=== PATIENT | female | born 1935 | race Caucasian/White ===

== ENCOUNTER → 2016-10-20 | Outpatient (CLI) | payer MEDICARE ==
[~2016-10-20] MED LIST: /ASCO250TA PO; /WARF25TA OR; ACET500C PO; ALEV220T26 PO; ALPHAGAN OU; AMLO10TA2 PO; AMLO10TAB OR; AMLO25TA PO; ASPI325T5 PO; ASPI81TA83 OR; AZOP0.2S OU; AZOPT OU; BISO10TA2 OR; BISO5TAB5 PO; BRIM1OPD OU; CALCTAB22 OR; FERR325T3 PO; METO25TAB PO; MULTCAP11 PO; OMEP40CA2 PO; OMEPPOW18 PO; PERC5TAB6 PO; PERC7.5T8 OR; TRAV04OPD OU; TRAVATAN OU; TYLE325T5 PO; VITA1CAP25 PO; VITA1TAB23 PO; VITAMIN D PO; XARE15TA PO
[2016-10-20 19:21] LABS: ALBUMIN 4.2 GM/DL (3.2-5.2); ALBUMIN/GLOBULIN RATIO 1.08 (1.00-1.93); BILIRUBIN,DIRECT 0.2 MG/DL (0.0-0.2); BILIRUBIN,TOTAL 0.6 MG/DL (0.2-1.0); CALCIUM LEVEL 9.4 MG/DL (8.8-10.2); CREATININE FOR GFR 1.25 MG/DL (0.55-1.02); GLOMERULAR FILTRATION RATE 43.6 (>32); POTASSIUM SERUM 4.2 MEQ/L (3.5-5.1); TOTAL PROTEIN 8.1 GM/DL (6.4-8.2)
[2016-10-20 19:46] LABS: BASO % 0.6 % (0.0-1.0); EOS # 0.1 K/mm3 (0.0-0.50); EOS % 1.9 % (0.0-3.0); LARGE UNSTAINED CELL # 0.2 K/mm3 (0.0-0.4); LARGE UNSTAINED CELL % 2.8 % (0.0-4.0); LYMPH # 2.5 K/mm3 (1.5-4.5); LYMPH % 38.7 % (24.0-44.0); MEAN CORPUSCULAR HEMOGLOBIN 29.3 pg (27.0-33.0); MEAN CORPUSCULAR HGB CONC 31.3 g/dl (32.0-36.5); MEAN CORPUSCULAR VOLUME 93.7 fl (80.0-96.0); MONO # 0.3 K/mm3 (0.0-0.8); MONO % 3.9 % (0.0-5.0); NEUTROPHILS # 3.4 K/mm3 (1.8-7.7); NEUTROPHILS % 52.2 % (36.0-66.0); PLATELET COUNT, AUTOMATED 213 k/mm3 (150-450); RED CELL DISTRIBUTION WIDTH 13.8 % (11.5-14.5); WHITE BLOOD COUNT 6.4 K/mm3 (4.0-10.0)
== END ==
LOC: M WUC 08:09
PROVIDERS: ATTEND Physician Assistant Medical
DX: I48.91 Unspecified atrial fibrillation (principal); I10 Essential (primary) hypertension; R53.83 Other fatigue; I25.10 Atherosclerotic heart disease of native coronary artery without angina pectoris; I49.5 Sick sinus syndrome

== ENCOUNTER 2017-03-09 14:46 | Emergency (ER) | payer MEDICARE ==
[~2017-03-09] VITALS: Ht 149.9 cm; Wt 63.5 kg
[2017-03-09 16:08] VITALS: BP 171/82
== END 2017-03-09 16:24 | disposition home or self-care (01) ==
LOC: M ED 16:18
DX: T83.428A Displacement of other prosthetic devices, implants and grafts of genital tract, initial encounter (principal); N93.9 Abnormal uterine and vaginal bleeding, unspecified; Y76.2 Prosthetic and other implants, materials and accessory obstetric and gynecological devices associated with adverse incidents; I25.10 Atherosclerotic heart disease of native coronary artery without angina pectoris; Z86.718 Personal history of other venous thrombosis and embolism; Z79.899 Other long term (current) drug therapy; Z79.01 Long term (current) use of anticoagulants; Z91.041 Radiographic dye allergy status; Z88.2 Allergy status to sulfonamides

== ENCOUNTER → 2017-06-05 | Outpatient (CLI) | payer MEDICARE ==
[~2017-06-05] MED LIST changes: +METO100T5 PO; +METO25TA4 PO; -METO25TAB PO; +PERC5TAB12 PO; -PERC5TAB6 PO; +ZOFR4TAB3 PO
[2017-06-05 09:52] LABS: BASO % 0.8 % (0.0-1.0); EOS # 0.2 K/mm3 (0.0-0.50); EOS % 3.4 % (0.0-3.0); LARGE UNSTAINED CELL # 0.2 K/mm3 (0.0-0.4); LARGE UNSTAINED CELL % 3.2 % (0.0-4.0); LYMPH # 2.2 K/mm3 (1.5-4.5); LYMPH % 34.6 % (24.0-44.0); MEAN CORPUSCULAR HEMOGLOBIN 29.9 pg (27.0-33.0); MEAN CORPUSCULAR HGB CONC 32.6 g/dl (32.0-36.5); MEAN CORPUSCULAR VOLUME 91.7 fl (80.0-96.0); MONO # 0.3 K/mm3 (0.0-0.8); MONO % 5.8 % (0.0-5.0); NEUTROPHILS # 3.1 K/mm3 (1.8-7.7); NEUTROPHILS % 52.1 % (36.0-66.0); PLATELET COUNT, AUTOMATED 203 k/mm3 (150-450); WHITE BLOOD COUNT 5.9 K/mm3 (4.0-10.0)
[2017-06-05 09:55] LABS: ALBUMIN 3.9 GM/DL (3.2-5.2); BILIRUBIN,TOTAL 0.6 MG/DL (0.2-1.0); CALCIUM LEVEL 8.7 MG/DL (8.8-10.2); CREATININE FOR GFR 1.62 MG/DL (0.55-1.02); GLOMERULAR FILTRATION RATE 32.2 (>32); TOTAL PROTEIN 7.8 GM/DL (6.4-8.2)
[2017-06-05 10:18] LABS: POTASSIUM SERUM 5.2 MEQ/L (3.5-5.1)
== END ==
LOC: M WUC 08:10
PROVIDERS: ATTEND Family Medicine
DX: Z01.818 Encounter for other preprocedural examination (principal); N95.0 Postmenopausal bleeding; N85.00 Endometrial hyperplasia, unspecified

== ENCOUNTER 2017-06-11 06:23 | Day surgery (SDC) | payer MEDICARE ==
[~2017-06-11] VITALS: Ht 149.9 cm; Wt 64.9 kg
[~2017-06-11 06:23] MED LIST changes: -ZOFR4TAB3 PO
[2017-06-11] MEDS ORDERED: LR 1,000 ML IV SCH ×3 (06:30→09:00)
[2017-06-11] MEDS ORDERED: fentaNYL 100 MCG/2 ML INJECTION (J3010) As Ordered ONE (07:49)
[2017-06-11] MEDS ORDERED: dexameTHASONE 4 MG/ML 1ML VIAL (J1100) As Ordered ONE (07:49)
[2017-06-11] MEDS ORDERED: MIDAZOLAM INJ 2 MG/2 ML VIAL (J2250) As Ordered ONE (07:49)
[2017-06-11] MEDS ORDERED: ONDANSETRON 4MG/2ML VIAL (J2405) As Ordered ONE (07:49)
[2017-06-11] MEDS ORDERED: PROPOFOL 200 MG/20 ML VIAL As Ordered ONE (07:49)
[2017-06-11] MEDS ORDERED: LIDOCAINE 2% INJ 100 MG/5 ML SDV (FOR ANES.) As Ordered ONE (07:49)
[2017-06-11] MEDS ORDERED: IBUPROFEN 400 MG TAB PO PRN (08:45)
[2017-06-11] MEDS ORDERED: ONDANSETRON 4MG/2ML VIAL (J2405) IV PRN (08:45)
[2017-06-11] MEDS ORDERED: fentaNYL 100 MCG/2 ML INJECTION (J3010) IV PRN (08:45)
[2017-06-11 10:05] VITALS: BP 159/74
--- NOTE | 2017-06-11 10:53 | RO ---
DATE OF PROCEDURE: 06/11/2017 PREPROCEDURE DIAGNOSIS: Postmenopausal bleeding and abnormal ultrasound. The patient also has a incidental procidentia. POSTPROCEDURE DIAGNOSIS: Postmenopausal bleeding and abnormal ultrasound. The patient also has a incidental procidentia. Small polyps. PROCEDURE: Dilation and curettage, hysteroscopy and MyoSure polypectomy. SURGEON: Dr. Pauly Humphrey. BARKEEPER: ANESTHESIA: LMA DESCRIPTION OF PROCEDURE: Ana Rosa was brought to the operating room where sufficient LMA anesthesia was induced and she was prepped, draped and positioned in the usual sterile fashion. The bladder was emptied. The cervix grasped with single tooth tenacula and the cervix was sounded. She only sounded to 4, which most likely in this 82-year-old patient represents atrophic changes but palpation of the procidentia indicates the cervix may be a little bit elongated so we dilated her at 4 cm dilation and then went ahead and placed the scope and saw what appeared to be endometrial polyps and atrophy. So these were resected. At the fundus, there was a small area that appeared to be just a single tubal ostia or a small beginnings of a perforation from the sounding. We did not see a second ostia. We went ahead and dilated her a little further so we could examine this area and there was no evidence of any significant problem there. There was certainly no evidence that we had not gotten all the way into the uterus. We dilated enough that we could see that this was the beginnings of as small perforation but there was no significant bleeding despite her Eliquis until we backed out the scope to the area where were resected the polyp. We did not see any bleeding in that area of dilation at all. So there was no further lesion. The curettage had already been accomplished before we even went ahead and dilated a little further. So we completed the procedure. Again, there was good hemostasis. Estimated blood loss for the procedure was maybe 5 mL. Fluid replacement was crystalloid. Complications: None. CONDITION AND DISPOSITION: Ana Rosa tolerated the procedure well and was recovering in the recovery room in good condition.
== END 2017-06-11 10:07 | disposition home or self-care (01) ==
LOC: M SDC 06:23
PROVIDERS: ATTEND Obstetrics & Gynecology
DX: N95.0 Postmenopausal bleeding (principal); N84.0 Polyp of corpus uteri; N81.3 Complete uterovaginal prolapse; Z95.0 Presence of cardiac pacemaker; I10 Essential (primary) hypertension; E78.5 Hyperlipidemia, unspecified; K44.9 Diaphragmatic hernia without obstruction or gangrene; K21.9 Gastro-esophageal reflux disease without esophagitis; D64.9 Anemia, unspecified; Z79.899 Other long term (current) drug therapy; Z88.2 Allergy status to sulfonamides; Z91.041 Radiographic dye allergy status
CPT/HCPCS: 58558; 88304; J1100; J2250; J2405; J3010

== ENCOUNTER 2017-06-21 19:38 | Emergency (ER) | payer MEDICARE ==
[~2017-06-21] VITALS: Ht 149.9 cm; Wt 65.0 kg
[2017-06-21] MEDS ORDERED: ACETAMINOPHEN TAB 650MG DOSE (2X325MG) PO ONE (20:15)
[2017-06-21] MEDS ORDERED: NS 500 ML IV ONE (20:15)
[2017-06-21] MEDS ORDERED: ONDANSETRON 4MG/2ML VIAL (J2405) IV ONE (20:15)
[2017-06-21 21:23] LABS: BASO % 0.3 % (0.0-1.0); EOS # 0.1 K/mm3 (0.0-0.50); EOS % 0.6 % (0.0-3.0); LARGE UNSTAINED CELL # 0.1 K/mm3 (0.0-0.4); LARGE UNSTAINED CELL % 0.6 % (0.0-4.0); LYMPH # 0.8 K/mm3 (1.5-4.5); LYMPH % 5.7 % (24.0-44.0); MEAN CORPUSCULAR HEMOGLOBIN 30.1 pg (27.0-33.0); MEAN CORPUSCULAR HGB CONC 33.7 g/dl (32.0-36.5); MEAN CORPUSCULAR VOLUME 89.4 fl (80.0-96.0); MONO # 0.6 K/mm3 (0.0-0.8); MONO % 4.6 % (0.0-5.0); NEUTROPHILS # 11.5 K/mm3 (1.8-7.7); NEUTROPHILS % 88.1 % (36.0-66.0); PLATELET COUNT, AUTOMATED 192 k/mm3 (150-450); RED CELL DISTRIBUTION WIDTH 13.9 % (11.5-14.5)
[2017-06-21 21:28] LABS: INR 1.91
[2017-06-21 21:35] LABS: ALBUMIN 3.6 GM/DL (3.2-5.2); ALBUMIN/GLOBULIN RATIO 0.95 (1.00-1.93); ALKALINE PHOSPHATASE 116 U/L (45-117); ALT/SGPT 21 U/L (12-78); AMYLASE 73 U/L (25-115); ANION GAP 7 MEQ/L (8-16); AST/SGOT 18 U/L (15-37); BILIRUBIN,DIRECT < 0.1 MG/DL (0.0-0.2); BILIRUBIN,TOTAL 0.4 MG/DL (0.2-1.0); BLOOD UREA NITROGEN 26 MG/DL (7-18); CALCIUM LEVEL 8.5 MG/DL (8.8-10.2); CARBON DIOXIDE LEVEL 25 MEQ/L (21-32); CHLORIDE LEVEL 107 MEQ/L (98-107); CREATININE FOR GFR 1.52 MG/DL (0.55-1.02); GLOMERULAR FILTRATION RATE 34.7 (>32); GLUCOSE, FASTING 96 MG/DL (83-110); SODIUM LEVEL 139 MEQ/L (136-145); TOTAL PROTEIN 7.4 GM/DL (6.4-8.2)
[2017-06-21 22:28] VITALS: BP 129/65
--- NOTE | 2017-06-21 23:40 | REPUSA ---
CT of the abdomen and pelvis without contrast Clinical statement: Pain. Technique: Multiple axial CT images were obtained from the base of the lungs to the floor of the pelv is utilizing 5 mm axial slices without administration of contrast. Coronal and sagittal reconstructio ns were also obtained. No comparison is available. Findings: Chest: The visualized lung bases are clear. There is a moderate sized hiatal hernia. Abdomen: The kidneys are normal in size bilaterally. There is no evidence of hydronephrosis or nephro lithiasis. The liver, spleen, pancreas, gallbladder and adrenal glands are unremarkable. The aorta de monstrates moderate atherosclerosis, with normal caliber and contour. There is no abdominal lymphaden opathy or ascites. Pelvis: The bowel is unremarkable, with no obstructive or inflammatory changes. The appendix is zoey l. The urinary bladder is within normal limits. There is no pelvic lymphadenopathy or ascites. The ot her pelvic structures appear unremarkable. Bones: There are no suspicious osseous abnormalities seen. Levoscoliosis of the spine is appreciated, with mild spondylosis. 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 Impression: 1. No obstructive or inflammatory bowel changes. 2. Moderate sized hiatal hernia. 3. No evidence of hydronephrosis or nephrolithiasis. 4. Scoliosis with mild spondylosis.
[2017-06-21] MEDS ORDERED: ZOFR4TAB3 PO (23:49)
== END 2017-06-22 00:03 | disposition home or self-care (01) ==
LOC: M ED 19:38
DX: R10.9 Unspecified abdominal pain (principal); R11.2 Nausea with vomiting, unspecified; R19.7 Diarrhea, unspecified; I48.91 Unspecified atrial fibrillation; I25.10 Atherosclerotic heart disease of native coronary artery without angina pectoris; K21.9 Gastro-esophageal reflux disease without esophagitis; Z79.899 Other long term (current) drug therapy; Z91.041 Radiographic dye allergy status; Z88.2 Allergy status to sulfonamides; Z98.890 Other specified postprocedural states
CPT/HCPCS: 36415; 74176; 80048; 80076; 81001; 82150; 83605; 83690; 85025; 85610; 85730; 87086; 96361; 96374; 99284; J2405

== ENCOUNTER → 2017-06-24 | Outpatient (REF) | payer BC, MEDICARE ==
[~2017-06-24] MED LIST changes: +ZOFR4TAB3 PO
== END ==
LOC: M LAB REF 07:30
PROVIDERS: ATTEND Physician Assistant Surgical
DX: R19.7 Diarrhea, unspecified (principal)

== ENCOUNTER 2018-04-11 06:42 | Emergency (ER) | payer MEDICARE ==
[2018-04-11 07:40] LABS: BASO # 0.1 10^3/uL (0.0-0.2); BASO % 1.1 % (0.0-1.0); EOS # 0.1 10^3/uL (0.0-0.50); EOS % 2.3 % (0.0-3.0); HEMATOCRIT 34.9 % (36.0-47.0); HEMOGLOBIN 11.8 g/dl (12.0-15.5); LYMPH # 2.1 10^3/uL (1.5-4.5); LYMPH % 36.6 % (24.0-44.0); MEAN CORPUSCULAR HEMOGLOBIN 29.5 pg (27.0-33.0); MEAN CORPUSCULAR HGB CONC 33.8 g/dl (32.0-36.5); MEAN CORPUSCULAR VOLUME 87.3 fl (80.0-96.0); MONO # 0.6 10^3/uL (0.0-0.8); MONO % 10.3 % (0.0-5.0); NEUTROPHILS # 2.8 10^3/uL (1.8-7.7); NEUTROPHILS % 49.7 % (36.0-66.0); PLATELET COUNT, AUTOMATED 204 10^3/uL (150-450); RED CELL DISTRIBUTION WIDTH 14.1 % (11.5-14.5); WHITE BLOOD COUNT 5.6 10^3/uL (4.0-10.0)
[2018-04-11 08:03] LABS: BLOOD UREA NITROGEN 23 MG/DL (7-18); CALCIUM LEVEL 8.4 MG/DL (8.8-10.2); CHLORIDE LEVEL 110 MEQ/L (98-107); CPK CREATINE PHOSPHOKINASE 165 U/L (26-192); GLUCOSE, FASTING 101 MG/DL (70-100); POTASSIUM SERUM 4.2 MEQ/L (3.5-5.1); SODIUM LEVEL 144 MEQ/L (136-145); TROPONIN I 0.02 NG/ML (< 0.10)
[2018-04-11 08:05] LABS: CK-MB VALUE MASS 2.4 NG/ML (<3.6); MB/CK RELATIVE INDEX 1.45 (< OR =4)
[2018-04-11 08:51] LABS: ANION GAP 10 MEQ/L (8-16); CARBON DIOXIDE LEVEL 24 MEQ/L (21-32)
== END 2018-04-11 09:13 | disposition home or self-care (01) ==
LOC: M ED 06:42
DX: R07.89 Other chest pain (principal); R00.1 Bradycardia, unspecified; I48.91 Unspecified atrial fibrillation; I10 Essential (primary) hypertension; H40.9 Unspecified glaucoma; Z91.041 Radiographic dye allergy status; Z88.2 Allergy status to sulfonamides; Z95.0 Presence of cardiac pacemaker; Z79.899 Other long term (current) drug therapy; Z79.01 Long term (current) use of anticoagulants
CPT/HCPCS: 71046

== ENCOUNTER 2018-06-26 07:43 | Day surgery (SDC) | payer MEDICARE ==
[~2018-06-26 07:43] MED LIST changes: -/ASCO250TA PO; -/WARF25TA OR; -ACET500C PO; -ALEV220T26 PO; -ALPHAGAN OU; -AMLO10TA2 PO; -AMLO10TAB OR; -AMLO25TA PO; -ASPI325T5 PO; -ASPI81TA83 OR; -AZOP0.2S OU; -AZOPT OU; -BISO10TA2 OR; -BISO5TAB5 PO; -BRIM1OPD OU; -CALCTAB22 OR; -FERR325T3 PO; -METO100T5 PO; -METO25TA4 PO; +MIDAZOLAM INJ 2 MG/2 ML VIAL (J2250) As Ordered; -MULTCAP11 PO; -OMEP40CA2 PO; -OMEPPOW18 PO; -PERC5TAB12 PO; -PERC7.5T8 OR; -TRAV04OPD OU; -TRAVATAN OU; +TROPICAMIDE 1% OPHTH SOLN 2ML OD; -TYLE325T5 PO; -VITA1CAP25 PO; -VITA1TAB23 PO; -VITAMIN D PO; -XARE15TA PO; -ZOFR4TAB3 PO
[2018-06-26] MEDS: PHENYLEPHRINE 2.5% OPHTH SOL 2ML OD (08:14)
[2018-06-26] MEDS: OFLOXACIN 0.3 % (OCUFLOX) OPTH SOL 5ML OD (08:14)
[2018-06-26] MEDS: PROPARACAINE 0.5% OPHTH SOL 15ML OD (08:15)
[2018-06-26] MEDS ORDERED: fentaNYL 100 MCG/2 ML INJECTION (J3010) As Ordered (08:50)
[2018-06-26] MEDS: POVIDONE-IODINE 5% OPHTH PREP SOL 30ML As Ordered (08:52)
[2018-06-26] MEDS: CEFUROXIME 1MG/0.1ML INTRACAMERAL INJ As Ordered (08:52)
[2018-06-26] MEDS: DUOVISC (0.50ML VISCOAT/0.55ML PROVISC) OPHTH KIT As Ordered (08:52)
[2018-06-26] MEDS: BALANCED SALT IRRIGATION SOLUTION 500ML BAG (FOR OR EYE MACHINE) As Ordered (08:52)
[2018-06-26] MEDS: LIDOCAINE 0.75%/EPINEPHRINE 0.025% IN BSS 1ML SYR INTRACAMERAL (OR ONLY) As Ordered (08:52)
== END 2018-06-26 09:35 | disposition home or self-care (01) ==
LOC: M SDC 07:43
DX: H25.11 Age-related nuclear cataract, right eye (principal); H40.1112 Primary open-angle glaucoma, right eye, moderate stage; I48.91 Unspecified atrial fibrillation; I10 Essential (primary) hypertension; K57.32 Diverticulitis of large intestine without perforation or abscess without bleeding; K44.9 Diaphragmatic hernia without obstruction or gangrene; K21.9 Gastro-esophageal reflux disease without esophagitis; M12.9 Arthropathy, unspecified; M91.0 Juvenile osteochondrosis of pelvis; M54.9 Dorsalgia, unspecified; N39.3 Stress incontinence (female) (male); Z88.2 Allergy status to sulfonamides; Z91.041 Radiographic dye allergy status; Z79.899 Other long term (current) drug therapy; Z78.0 Asymptomatic menopausal state; Z95.0 Presence of cardiac pacemaker; Z96.641 Presence of right artificial hip joint; Z96.651 Presence of right artificial knee joint
CPT/HCPCS: 66984

== ENCOUNTER → 2018-07-26 | Outpatient (CLI) | payer MEDICARE ==
[2018-07-26 20:33] LABS: CHOLESTEROL LEVEL 252 MG/DL (<200); CHOLESTEROL RISK RATIO 4.754 (<5); HDL CHOLESTEROL 53 MG/DL (>40); LDL CHOLESTEROL 160 MG/DL (<100); NON-HDL-C 199 MG/DL; TRIGLYCERIDES LEVEL 195 MG/DL (<150)
== END ==
LOC: M WUC 08:08
DX: I10 Essential (primary) hypertension (principal)
CPT/HCPCS: 80061

== ENCOUNTER → 2018-12-27 | Outpatient (CLI) | payer MEDICARE ==
[~2018-12-27] MED LIST changes: +/ASCO250TA PO; +/WARF25TA OR; +ACET500C PO; +ALEV220T26 PO; +ALPHAGAN OU; +AMLO10TA5 PO; +AMLO10TAB OR; +AMLO25TA PO; +ASPI325T5 PO; +ASPI81TA83 OR; +AZOP0.2S OU; +AZOPT OU; +BISO10TA2 OR; +BISO5TAB5 PO; +BRIM1OPD OU; +CALCTAB22 OR; +FERR325T3 PO; +METO100T5 PO; +METO25TA4 PO; -MIDAZOLAM INJ 2 MG/2 ML VIAL (J2250) As Ordered; +MULTCAP11 PO; +OMEP40CA2 PO; +OMEPPOW18 PO; +PERC5TAB12 PO; +PERC7.5T8 OR; +TRAV04OPD OU; +TRAVATAN OU; -TROPICAMIDE 1% OPHTH SOLN 2ML OD; +TYLE325T5 PO; +VITA1CAP25 PO; +VITA1TAB23 PO; +VITAMIN D PO; +XARE15TA PO; +ZOFR4TAB14 PO
[2018-12-27 13:58] LABS: ALBUMIN 4.1 GM/DL (3.2-5.2); BILIRUBIN,DIRECT 0.2 MG/DL (0.0-0.2); BILIRUBIN,TOTAL 0.7 MG/DL (0.2-1.0); CHOLESTEROL RISK RATIO 2.683 (<5); TOTAL PROTEIN 8.1 GM/DL (6.4-8.2)
== END ==
LOC: M WUC 08:03
PROVIDERS: ATTEND Nurse Practitioner Family
DX: E78.5 Hyperlipidemia, unspecified (principal); I10 Essential (primary) hypertension; I25.10 Atherosclerotic heart disease of native coronary artery without angina pectoris; I48.0 Paroxysmal atrial fibrillation; Z95.0 Presence of cardiac pacemaker

== ENCOUNTER 2019-04-02 05:48 | Emergency (ER) | payer MEDICARE ==
[~2019-04-02] VITALS: Ht 149.9 cm; Wt 64.1 kg
[~2019-04-02 05:48] MED LIST changes: -/WARF25TA OR; +COUM1TAB18 OR
[2019-04-02] MEDS ORDERED: ERGO2500 PO (05:56)
[2019-04-02] MEDS ORDERED: METO100T5 PO (05:56)
[2019-04-02] MEDS ORDERED: ATOR1TAB21 PO (05:56)
[2019-04-02] MEDS ORDERED: ACETAMINOPHEN TAB 650MG DOSE (2X325MG) PO ONE (06:30)
--- NOTE | 2019-04-02 07:56 | REPVR ---
EXAM: CT Head Without Contrast EXAM DATE/TIME: 04/02/2019 6:21 AM CLINICAL HISTORY: 84 years old, female; Pain; Headache not specified; Additional info: R headache, h/o a-fib TECHNIQUE: Imaging protocol: Axial computed tomography images of the head without contrast. Radiation optimization: All CT scans at this facility use at least one of these dose optimization techniques: automated exposure control; mA and/or kV adjustment per patient size (includes targeted exams where dose is matched to clinical indication); or iterative reconstruction. COMPARISON: CT Head without contrast 02/22/2015 7:46 AM FINDINGS: Brain: There is no acute intracranial abnormality. Mild prominence of ventricles and sulci representing volume loss. Mild small vessel ischemic changes are seen. There is no mass, midline shift, or mass effect. Ayala-white matter differentiation is preserved. There is no evidence of hemorrhage. There is no extra-axial fluid collection. Basal cisterns are patent. Ventricles: See Brain Finding. Bones/joints: The visualized osseous structures are unremarkable. Sinuses: Visualized sinuses are clear. Mastoid air cells: Mastoid air cells are clear. Soft tissues: Unremarkable. IMPRESSION: 1. Mild volume loss and small vessel ischemic changes. . 2. No acute intracranial abnormality. Electronically signed by: Edelmira Pretty On 04/02/2019 07:56:46 AM
[2019-04-02 08:37] VITALS: BP 144/66
== END 2019-04-02 08:39 | disposition home or self-care (01) ==
LOC: M ED 05:48
DX: R51 Headache (principal); I67.82 Cerebral ischemia; I48.91 Unspecified atrial fibrillation; I10 Essential (primary) hypertension; E78.5 Hyperlipidemia, unspecified; K21.9 Gastro-esophageal reflux disease without esophagitis; K44.9 Diaphragmatic hernia without obstruction or gangrene; Z79.01 Long term (current) use of anticoagulants; Z79.899 Other long term (current) drug therapy; Z82.49 Family history of ischemic heart disease and other diseases of the circulatory system; Z86.718 Personal history of other venous thrombosis and embolism; Z88.2 Allergy status to sulfonamides; Z91.041 Radiographic dye allergy status; Z95.0 Presence of cardiac pacemaker; Z96.649 Presence of unspecified artificial hip joint; Z96.651 Presence of right artificial knee joint

== ENCOUNTER → 2019-04-25 | Outpatient (CLI) | payer MEDICARE ==
[~2019-04-25] MED LIST changes: +ATOR1TAB21 PO; +BISO5TAB14 PO; -BISO5TAB5 PO; +ERGO2500 PO; +OMEP40CA97 PO
[2019-04-25 18:53] LABS: BASO # 0.1 10^3/uL (0.0-0.2); BASO % 0.8 % (0.0-1.0); EOS # 0.2 10^3/uL (0.0-0.50); EOS % 2.4 % (0.0-3.0); HEMATOCRIT 38.3 % (36.0-47.0); HEMOGLOBIN 12.1 g/dl (12.0-15.5); LYMPH # 2.6 10^3/uL (1.5-4.5); LYMPH % 40.3 % (24.0-44.0); MEAN CORPUSCULAR HEMOGLOBIN 29.6 pg (27.0-33.0); MEAN CORPUSCULAR HGB CONC 31.6 g/dl (32.0-36.5); MEAN CORPUSCULAR VOLUME 93.6 fl (80.0-96.0); MONO # 0.5 10^3/uL (0.0-0.8); MONO % 7.2 % (0.0-5.0); NEUTROPHILS # 3.1 10^3/uL (1.8-7.7); NEUTROPHILS % 49.1 % (36.0-66.0); PLATELET COUNT, AUTOMATED 203 10^3/uL (150-450); RED BLOOD COUNT 4.09 10^6/uL (4.00-5.40); WHITE BLOOD COUNT 6.4 10^3/uL (4.0-10.0)
[2019-04-25 19:01] LABS: ALBUMIN 4.1 GM/DL (3.2-5.2); BILIRUBIN,TOTAL 0.6 MG/DL (0.2-1.0); CALCIUM LEVEL 8.9 MG/DL (8.8-10.2); CHOLESTEROL RISK RATIO 2.786 (<5); CREATININE FOR GFR 1.43 MG/DL (0.55-1.30); POTASSIUM SERUM 4.7 MEQ/L (3.5-5.1); TOTAL PROTEIN 8.2 GM/DL (6.4-8.2)
[2019-04-27 11:17] LABS: TOTAL 25(OH) VITAMIN D 69.7 NG/ML (30.0-100.0)
== END ==
LOC: M WUC 08:01
PROVIDERS: ATTEND Physician Assistant Medical
DX: I10 Essential (primary) hypertension (principal); E55.9 Vitamin D deficiency, unspecified; E78.2 Mixed hyperlipidemia; I25.10 Atherosclerotic heart disease of native coronary artery without angina pectoris; Z79.899 Other long term (current) drug therapy

== ENCOUNTER → 2019-10-16 | Outpatient (REF) | payer MEDICARE ==
[~2019-10-16] MED LIST changes: -BISO5TAB14 PO; +BISO5TAB9 PO
== END ==
LOC: M LAB REF 13:46
PROVIDERS: ATTEND Physician Assistant
DX: R35.0 Frequency of micturition (principal); M54.5 Low back pain

== ENCOUNTER → 2020-04-21 | Outpatient (CLI) | payer MEDICARE ==
[~2020-04-21] MED LIST changes: -AMLO10TA5 PO; +AMLO1TAB25 PO; +BISO5TAB14 PO; -BISO5TAB9 PO; -VITA1TAB23 PO; +VITA250T26 PO
[2020-04-21 11:35] LABS: BASO # 0.1 10^3/uL (0.0-0.2); BASO % 0.8 % (0.0-1.0); EOS # 0.2 10^3/uL (0.0-0.5); EOS % 2.9 % (0.0-3.0); HEMATOCRIT 36.8 % (36.0-47.0); HEMOGLOBIN 11.9 g/dl (12.0-15.5); LYMPH # 2.2 10^3/uL (1.5-5.0); LYMPH % 33.1 % (24.0-44.0); MEAN CORPUSCULAR HEMOGLOBIN 29.8 pg (27.0-33.0); MEAN CORPUSCULAR HGB CONC 32.3 g/dl (32.0-36.5); MEAN CORPUSCULAR VOLUME 92.2 fl (80.0-96.0); MONO # 0.5 10^3/uL (0.0-0.8); MONO % 7.3 % (0.0-5.0); NEUTROPHILS # 3.7 10^3/uL (1.5-8.5); NEUTROPHILS % 55.7 % (36.0-66.0); PLATELET COUNT, AUTOMATED 209 10^3/uL (150-450); RED BLOOD COUNT 3.99 10^6/uL (4.00-5.40); WHITE BLOOD COUNT 6.6 10^3/uL (4.0-10.0)
[2020-04-21 12:31] LABS: ALBUMIN 3.7 GM/DL (3.2-5.2); BILIRUBIN,TOTAL 0.6 MG/DL (0.2-1.0); CALCIUM LEVEL 9.1 MG/DL (8.8-10.2); CHOLESTEROL RISK RATIO 2.847 (<5); CREATININE FOR GFR 1.32 MG/DL (0.55-1.30); GLOMERULAR FILTRATION RATE 40.5 (>32); POTASSIUM SERUM 4.5 MEQ/L (3.5-5.1); TOTAL 25(OH) VITAMIN D 85.6 NG/ML (30.0-100.0); TOTAL PROTEIN 7.8 GM/DL (6.4-8.2)
== END ==
LOC: M WUC 08:20
PROVIDERS: ATTEND Physician Assistant
DX: E55.9 Vitamin D deficiency, unspecified (principal); I10 Essential (primary) hypertension; E78.2 Mixed hyperlipidemia; I49.5 Sick sinus syndrome; Z79.899 Other long term (current) drug therapy

== ENCOUNTER → 2020-05-04 | Outpatient (CLI) | payer MEDICARE ==
[2020-05-04 16:43] LABS: BASO # 0.1 10^3/uL (0.0-0.2); BASO % 0.8 % (0.0-1.0); EOS # 0.2 10^3/uL (0.0-0.5); EOS % 3.5 % (0.0-3.0); HEMATOCRIT 34.5 % (36.0-47.0); LYMPH # 2.6 10^3/uL (1.5-5.0); LYMPH % 39.7 % (24.0-44.0); MEAN CORPUSCULAR HEMOGLOBIN 29.7 pg (27.0-33.0); MEAN CORPUSCULAR HGB CONC 31.9 g/dl (32.0-36.5); MEAN CORPUSCULAR VOLUME 93.2 fl (80.0-96.0); MONO # 0.5 10^3/uL (0.0-0.8); MONO % 8.1 % (0.0-5.0); NEUTROPHILS # 3.1 10^3/uL (1.5-8.5); NEUTROPHILS % 47.7 % (36.0-66.0); PLATELET COUNT, AUTOMATED 163 10^3/uL (150-450); WHITE BLOOD COUNT 6.5 10^3/uL (4.0-10.0)
== END ==
LOC: M WUC 15:12
PROVIDERS: ATTEND Nurse Practitioner Family
DX: K62.5 Hemorrhage of anus and rectum (principal)

== ENCOUNTER → 2021-04-18 | Outpatient (CLI) | payer MEDICARE ==
[~2021-04-18] MED LIST changes: +OMEP40CA4 PO; -OMEP40CA97 PO
[2021-04-18 10:27] LABS: BASO % 0.6 % (0.0-1.0); EOS # 0.2 10^3/uL (0.0-0.5); EOS % 2.3 % (0.0-3.0); HEMOGLOBIN 11.6 g/dl (12.0-15.5); LYMPH # 2.9 10^3/uL (1.5-5.0); LYMPH % 44.8 % (24.0-44.0); MEAN CORPUSCULAR HEMOGLOBIN 29.4 pg (27.0-33.0); MEAN CORPUSCULAR HGB CONC 32.2 g/dl (32.0-36.5); MEAN CORPUSCULAR VOLUME 91.4 fl (80.0-96.0); MONO # 0.6 10^3/uL (0.0-0.8); MONO % 8.9 % (2.0-8.0); NEUTROPHILS # 2.8 10^3/uL (1.5-8.5); NEUTROPHILS % 43.2 % (36.0-66.0); PLATELET COUNT, AUTOMATED 194 10^3/uL (150-450); RED BLOOD COUNT 3.94 10^6/uL (4.00-5.40); WHITE BLOOD COUNT 6.5 10^3/uL (4.0-10.0)
[2021-04-18 11:06] LABS: ALBUMIN 3.8 GM/DL (3.2-5.2); BILIRUBIN,TOTAL 0.4 MG/DL (0.2-1.0); CALCIUM LEVEL 9.2 MG/DL (8.8-10.2); CHOLESTEROL RISK RATIO 2.947 (<5); CREATININE FOR GFR 1.33 MG/DL (0.55-1.30); FREE T4 1.14 NG/DL (0.76-1.46); GLOMERULAR FILTRATION RATE 40.1 (>32); POTASSIUM SERUM 4.6 MEQ/L (3.5-5.1); THYROID STIMULATING HORMONE 1.43 uIU/ML (0.358-3.740); TOTAL PROTEIN 7.6 GM/DL (6.4-8.2)
== END ==
LOC: M WUC 08:39
PROVIDERS: ATTEND Nurse Practitioner Family
DX: I10 Essential (primary) hypertension (principal)

== ENCOUNTER → 2022-05-02 | Outpatient (CLI) | payer MEDICARE ==
[2022-05-02 10:01] LABS: BASO # 0.1 10^3/uL (0.0-0.2); EOS # 0.2 10^3/uL (0.0-0.5); EOS % 2.3 % (0.0-3.0); HEMATOCRIT 33.2 % (36.0-47.0); HEMOGLOBIN 10.6 g/dl (12.0-15.5); LYMPH # 2.8 10^3/uL (1.5-5.0); LYMPH % 38.8 % (24.0-44.0); MEAN CORPUSCULAR HEMOGLOBIN 29.1 pg (27.0-33.0); MEAN CORPUSCULAR HGB CONC 31.9 g/dl (32.0-36.5); MEAN CORPUSCULAR VOLUME 91.2 fl (80.0-96.0); MONO # 0.6 10^3/uL (0.0-0.8); MONO % 7.6 % (2.0-8.0); NEUTROPHILS # 3.6 10^3/uL (1.5-8.5); PLATELET COUNT, AUTOMATED 192 10^3/uL (150-450); RED BLOOD COUNT 3.64 10^6/uL (4.00-5.40); WHITE BLOOD COUNT 7.3 10^3/uL (4.0-10.0)
[2022-05-02 10:45] LABS: ALBUMIN 3.8 GM/DL (3.2-5.2); BILIRUBIN,TOTAL 0.6 MG/DL (0.2-1.0); CALCIUM LEVEL 9.2 MG/DL (8.8-10.2); CREATININE FOR GFR 1.52 MG/DL (0.55-1.30); GLOMERULAR FILTRATION RATE 34.3 (>32); POTASSIUM SERUM 4.4 MEQ/L (3.5-5.1); TOTAL PROTEIN 7.3 GM/DL (6.4-8.2)
== END ==
LOC: M WUC 08:24
PROVIDERS: ATTEND Nurse Practitioner Family
DX: I10 Essential (primary) hypertension (principal)